=== PATIENT | male | born 1955 | race Two or more races ===

== ENCOUNTER 2023-03-13 15:48 | Inpatient (IN) | payer MEDICARE ==
[~2023-03-13] VITALS: Ht 170.2 cm; Wt 79.5 kg
[2023-03-13 17:12] LABS: Basophils # (auto) 0.1 10 ^3/uL (0-0.2); Hemoglobin 10.6 g/dL (13.5-17.5); Monocytes # (auto) 0.7 10 ^3/uL (0-1.3)
[2023-03-13 17:15] LABS: Basophils % (auto) 1.5 % (0.0-2.0); Eosinophils # (auto) 0.1 10 ^3/uL (0-0.8); Eosinophils % (auto) 1.7 % (0.0-7.0); Hematocrit 33.2 % (41.0-53.0); Lymphocytes # (auto) 0.8 10 ^3/uL (0.4-5.4); Lymphocytes % (auto) 11.2 % (10.0-50.0); Mean Corpuscular Hemoglobin 26.4 pg (28.0-32.0); Mean Corpuscular Hgb Conc. 31.9 g/dL (32.0-36.0); Mean Corpuscular Volume 82.9 fL (80.0-100.0); Monocytes % (auto) 9.5 % (0.0-12.0); Neutrophils # (auto) 5.7 10 ^3/uL (1.6-8.6); Neutrophils % (auto) 76.1 % (37.0-80.0); White Blood Cell 7.5 10^3/uL (4.4-10.8)
[2023-03-13 17:29] LABS: Alanine Aminotransferase 15 U/L (7-40); Albumin 4.5 g/dL (3.2-4.8); Alkaline Phosphatase 82 U/L (46-116); Anion Gap 10 (5-15); Aspartate Aminotransferase 14 U/L (13-40); BUN/Creatinine Ratio 27.2 (10.0-20.0); Blood Urea Nitrogen 22 mg/dL (9-23); Carbon Dioxide 21 mmol/L (20-30); Chloride 110 mmol/L (98-107); Glucose 122 mg/dL (74-106); Potassium 4.3 mmol/L (3.5-5.1); Sodium 141 mmol/L (136-145)
[2023-03-13 17:30] LABS: Bilirubin, Total 0.5 mg/dL (0.2-1.0); Total Protein 6.4 g/dL (5.7-8.2)
[2023-03-13 17:44] LABS: INR 1.3 (0.9-1.15); Partial Thromboplastin Time 30.4 SEC (24.5-34.5); Prothrombin Time 13.4 sec (9.3-11.8)
[2023-03-13 20:15] VITALS: PULSE 62; RESP 14; O2SAT 95
[2023-03-13] MEDS ORDERED: FUROSEMIDE 20 MG/2 ML VIAL IV ONE (20:30)
[2023-03-13] MEDS ORDERED: SPIRONOLACTONE 25 MG TAB PO ONE (20:30)
[2023-03-13] MEDS ORDERED: MORPHINE SULFATE INJ 2 MG/ml SYRG IV PRN (23:15)
[2023-03-14] VITALS (8 sets, daily range): BP systolic 150–162; BP diastolic 65–80; PULSE 54–62; RESP 16–19; TEMP 97.5–98.2; O2SAT 95–98
[2023-03-14 06:02] LABS: Basophils # (auto) 0.1 10 ^3/uL (0-0.2); Eosinophils # (auto) 0.2 10 ^3/uL (0-0.8); Hemoglobin 10.3 g/dL (13.5-17.5); Mean Corpuscular Hemoglobin 26.7 pg (28.0-32.0)
[2023-03-14 06:06] LABS: Basophils % (auto) 2.1 % (0.0-2.0); Eosinophils % (auto) 2.6 % (0.0-7.0); Hematocrit 32.3 % (41.0-53.0); Lymphocytes # (auto) 1.2 10 ^3/uL (0.4-5.4); Lymphocytes % (auto) 18.6 % (10.0-50.0); Mean Corpuscular Hgb Conc. 31.8 g/dL (32.0-36.0); Monocytes # (auto) 0.8 10 ^3/uL (0-1.3); Monocytes % (auto) 12.2 % (0.0-12.0); Neutrophils % (auto) 64.5 % (37.0-80.0); Nucleated Red Blood Cells % 0.2 %; Red Blood Cells 3.85 10^6/uL (4.5-5.90); Red Cell Distribution Width 19.3 % (11.8-14.3); White Blood Cell 6.2 10^3/uL (4.4-10.8)
[2023-03-14 06:25] LABS: Alkaline Phosphatase 76 U/L (46-116); Anion Gap 13 (5-15); Aspartate Aminotransferase 16 U/L (13-40); BUN/Creatinine Ratio 20.6 (10.0-20.0); Blood Urea Nitrogen 14 mg/dL (9-23); Calcium 9.1 mg/dL (8.7-10.4); Carbon Dioxide 21 mmol/L (20-30); Chloride 108 mmol/L (98-107); Glucose 118 mg/dL (74-106); Potassium 3.1 mmol/L (3.5-5.1); Sodium 142 mmol/L (136-145)
[2023-03-14 06:26] LABS: Albumin 4.6 g/dL (3.2-4.8); Bilirubin, Total 0.6 mg/dL (0.2-1.0); Total Protein 6.7 g/dL (5.7-8.2)
[2023-03-14 06:44] LABS: Alanine Aminotransferase 9 U/L (7-40)
[2023-03-14] MEDS ORDERED: POTASSIUM CHL 20 Meq TABLET PO ONE (08:45)
[2023-03-14] MEDS ORDERED: FUROSEMIDE 20 MG/2 ML VIAL IV ONE (08:45)
[2023-03-14] MEDS: ACETAMINOPHEN 325 MG TAB PO PRN (09:32)
[2023-03-14] MEDS ORDERED: LISI2.5T47 PO (10:20)
[2023-03-14] MEDS ORDERED: WARF-66 PO (10:20)
[2023-03-14] MEDS ORDERED: FLEC100T PO (10:20)
[2023-03-14] MEDS ORDERED: METF500S3 PO (10:20)
[2023-03-14] MEDS ORDERED: METO-6 PO (10:20)
[2023-03-14 16:20] LABS: INR 1.28 (0.9-1.15); Prothrombin Time 13.2 sec (9.3-11.8)
[2023-03-14 16:54] LABS: COVID19 ANTIGEN SOFIA FIA NEGATIVE (NEGATIVE)
[2023-03-14] MEDS ORDERED: WARFARIN SODIUM 2.5 MG TAB PO ONE (17:00)
[2023-03-14] MEDS: FLECAINIDE ACETATE 50 MG TAB PO SCH (21:31)
[2023-03-14] MEDS: ZOLPIDEM TARTRATE 5 MG TAB PO PRN (21:31)
[2023-03-15] MEDS ORDERED: guaiFENesin-DM 100/10mg/5ml SYR PO PRN (04:00)
[2023-03-15 05:00] VITALS: BP 154/73; PULSE 70; RESP 20; TEMP 97.5; O2SAT 95
[2023-03-15 07:09] LABS: INR 1.27 (0.9-1.15); Prothrombin Time 13.1 sec (9.3-11.8)
[2023-03-15 08:00] VITALS: PULSE 65; RESP 20
[2023-03-15] MEDS: HYDROcodone-ACET 5/325MG TAB PO PRN ×2 (08:34→12:40)
[2023-03-15] MEDS: FLECAINIDE ACETATE 50 MG TAB PO SCH ×2 (08:34→22:41)
[2023-03-15 09:45] VITALS: BP 164/78; PULSE 67; RESP 20; TEMP 97.5; O2SAT 93
[2023-03-15] MEDS ORDERED: LISINOPRIL 5 MG TAB PO SCH (10:00)
[2023-03-15 13:00] VITALS: BP 160/72; PULSE 68; RESP 19; TEMP 97.9; O2SAT 95
[2023-03-15 13:55] LABS: Rapid Influenza A Negative (Negative); Rapid Influenza B Negative (Negative)
[2023-03-15] MEDS ORDERED: WARFARIN SODIUM 2.5 MG TAB PO ONE (17:00)
[2023-03-15] MEDS ORDERED: hydrALAZINE HCL 20 MG/ML VL IV PRN (18:45)
[2023-03-15 20:00] VITALS: PULSE 86; RESP 16; O2SAT 94
[2023-03-15 22:00] VITALS: BP 135/84; PULSE 91; RESP 16; TEMP 98.8; O2SAT 93
[2023-03-15] MEDS: ZOLPIDEM TARTRATE 5 MG TAB PO PRN (22:41)
[2023-03-16] VITALS (22 sets, daily range): BP systolic 106–162; BP diastolic 46–83; PULSE 63–101; RESP 16–99; TEMP 98–100.1; O2SAT 94–99
[2023-03-16 07:46] LABS: INR 1.34 (0.9-1.15); Partial Thromboplastin Time 32.7 SEC (24.5-34.5); Prothrombin Time 13.8 sec (9.3-11.8)
[2023-03-16] MEDS ORDERED: LIDOCAINE VISCOUS 2% 15ML UD PO ONE (08:15)
[2023-03-16] MEDS ORDERED: MIDAZOLAM HCL 2MG/2ML 2ml VIAL (1mg/ml) IV ONE (08:15)
[2023-03-16] MEDS ORDERED: fentaNYL CITRATE 100 MCG/2 ML VL IV ONE (08:15)
[2023-03-16] MEDS ORDERED: ENOXAPARIN SOD 100 MG/1 ML SYRINGE SC ONE (08:44)
[2023-03-16] MEDS ORDERED: ENOXAPARIN SOD 80 MG/0.8ML SYRINGE SC ONE (08:45)
[2023-03-16] MEDS ORDERED: diphenhdrAMINE HCL 50 MG/1 ML VL ONE (08:52)
[2023-03-16] MEDS ORDERED: WARFARIN SODIUM 2.5 MG TAB PO ONE (09:00)
[2023-03-16] MEDS ORDERED: METOPROLOL TARTRATE 25 MG TAB PO ONE (09:00)
[2023-03-16] MEDS ORDERED: METOPROLOL TARTRATE 1MG/1ML-5ML VIAL IV ONE ×2 (09:00→09:02)
[2023-03-16] MEDS ORDERED: FLECAINIDE ACETATE 50 MG TAB PO ONE (09:00)
[2023-03-16] MEDS ORDERED: LISINOPRIL 5 MG TAB PO SCH (10:00)
[2023-03-16] MEDS: FLECAINIDE ACETATE 50 MG TAB PO SCH ×2 (10:10→22:06)
[2023-03-16] MEDS ORDERED: ISOSORBIDE MONONITRATE 20 MG TAB PO ONE (13:00)
[2023-03-16 13:39] LABS: Basophils # (auto) 0.1 10 ^3/uL (0-0.2); Eosinophils # (auto) 0 10 ^3/uL (0-0.8); Hemoglobin 10.9 g/dL (13.5-17.5); Lymphocytes # (auto) 0.5 10 ^3/uL (0.4-5.4)
[2023-03-16 13:42] LABS: Basophils % (auto) 0.5 % (0.0-2.0); Hematocrit 34.1 % (41.0-53.0); Lymphocytes % (auto) 3.9 % (10.0-50.0); Mean Corpuscular Hemoglobin 26.3 pg (28.0-32.0); Mean Corpuscular Hgb Conc. 31.9 g/dL (32.0-36.0); Mean Corpuscular Volume 82.4 fL (80.0-100.0); Monocytes % (auto) 7.9 % (0.0-12.0); Neutrophils # (auto) 10.8 10 ^3/uL (1.6-8.6); Neutrophils % (auto) 87.7 % (37.0-80.0); Red Blood Cells 4.14 10^6/uL (4.5-5.90); White Blood Cell 12.3 10^3/uL (4.4-10.8)
[2023-03-16 13:55] LABS: INR 1.67 (0.9-1.15); Partial Thromboplastin Time 32.6 SEC (24.5-34.5)
[2023-03-16 14:06] LABS: Alanine Aminotransferase 17 U/L (7-40); Albumin 4.8 g/dL (3.2-4.8); Alkaline Phosphatase 86 U/L (46-116); Anion Gap 13 (5-15); Aspartate Aminotransferase 27 U/L (13-40); BUN/Creatinine Ratio 19.4 (10.0-20.0); Blood Urea Nitrogen 18 mg/dL (9-23); Calcium 9.7 mg/dL (8.5-10.1); Carbon Dioxide 21 mmol/L (20-30); Chloride 103 mmol/L (98-107); Potassium 4.9 mmol/L (3.5-5.1); Sodium 137 mmol/L (136-145)
[2023-03-16 14:07] LABS: Bilirubin, Total 0.7 mg/dL (0.2-1.0); Total Protein 6.8 g/dL (5.7-8.2)
[2023-03-16 14:09] LABS: Glucose 252 mg/dL (74-106)
[2023-03-16] MEDS ORDERED: WARFARIN SODIUM 1 MG TAB PO ONE (17:00)
[2023-03-16] MEDS: HYDROcodone-ACET 5/325MG TAB PO PRN (20:05)
[2023-03-16] MEDS: ISOSORBIDE MONONITRATE 20 MG TAB PO SCH (22:00)
[2023-03-17] VITALS (7 sets, daily range): BP systolic 98–137; BP diastolic 52–65; PULSE 58–80; RESP 18–20; TEMP 98–98.6; O2SAT 93–97
[2023-03-17] MEDS: ACETAMINOPHEN 325 MG TAB PO PRN ×4 (01:46→21:37)
[2023-03-17] MEDS: HYDROcodone-ACET 5/325MG TAB PO PRN (05:02)
[2023-03-17 06:59] LABS: INR 1.52 (0.9-1.15); Prothrombin Time 15.5 sec (9.3-11.8)
[2023-03-17] MEDS: ENOXAPARIN SOD 80 MG/0.8ML SYRINGE SC SCH ×2 (09:58→21:21)
[2023-03-17] MEDS: ISOSORBIDE MONONITRATE 20 MG TAB PO SCH ×2 (09:59→21:22)
[2023-03-17] MEDS: FLECAINIDE ACETATE 50 MG TAB PO SCH ×2 (09:59→21:23)
[2023-03-17] MEDS: LISINOPRIL 20 MG TAB PO SCH (09:59)
[2023-03-17 10:48] LABS: Eosinophils # (auto) 0 10 ^3/uL (0-0.8); Lymphocytes # (auto) 0.5 10 ^3/uL (0.4-5.4); Monocytes # (auto) 0.9 10 ^3/uL (0-1.3); Nucleated Red Blood Cells % 0.1 %; Red Cell Distribution Width 19.1 % (11.8-14.3)
[2023-03-17 10:50] LABS: Basophils # (auto) 0 10 ^3/uL (0-0.2); Basophils % (auto) 0.5 % (0.0-2.0); Eosinophils % (auto) 0.3 % (0.0-7.0); Hematocrit 33.7 % (41.0-53.0); Hemoglobin 10.6 g/dL (13.5-17.5); Lymphocytes % (auto) 6.5 % (10.0-50.0); Mean Corpuscular Hemoglobin 26.1 pg (28.0-32.0); Mean Corpuscular Hgb Conc. 31.4 g/dL (32.0-36.0); Mean Corpuscular Volume 83.2 fL (80.0-100.0); Neutrophils # (auto) 6.3 10 ^3/uL (1.6-8.6); Neutrophils % (auto) 80.7 % (37.0-80.0); Red Blood Cells 4.05 10^6/uL (4.5-5.90); White Blood Cell 7.8 10^3/uL (4.4-10.8)
[2023-03-17 11:03] LABS: Alanine Aminotransferase 21 U/L (7-40); Albumin 4.3 g/dL (3.2-4.8); Alkaline Phosphatase 66 U/L (46-116); Anion Gap 12 (5-15); Aspartate Aminotransferase 32 U/L (13-40); BUN/Creatinine Ratio 26.5 (10.0-20.0); Blood Urea Nitrogen 18 mg/dL (9-23); Calcium 9.4 mg/dL (8.5-10.1); Carbon Dioxide 21 mmol/L (20-30); Chloride 106 mmol/L (98-107); Potassium 3.5 mmol/L (3.5-5.1); Sodium 139 mmol/L (136-145)
[2023-03-17 11:04] LABS: Bilirubin, Total 0.4 mg/dL (0.2-1.0); Total Protein 6.5 g/dL (5.7-8.2)
[2023-03-17 11:23] LABS: Glucose 112 mg/dL (74-106)
[2023-03-17] MEDS ORDERED: WARFARIN SODIUM 5 MG TAB PO ONE (17:00)
[2023-03-17] MEDS: ZOLPIDEM TARTRATE 5 MG TAB PO PRN (21:36)
[2023-03-18 05:00] VITALS: BP 138/88; PULSE 75; RESP 19; TEMP 98.1; O2SAT 96
[2023-03-18 06:47] LABS: Basophils # (auto) 0.1 10 ^3/uL (0-0.2); Basophils % (auto) 0.9 % (0.0-2.0); Eosinophils # (auto) 0.1 10 ^3/uL (0-0.8); Eosinophils % (auto) 1.2 % (0.0-7.0); Lymphocytes # (auto) 0.7 10 ^3/uL (0.4-5.4); Monocytes # (auto) 0.7 10 ^3/uL (0-1.3); Red Blood Cells 4.44 10^6/uL (4.5-5.90); White Blood Cell 5.9 10^3/uL (4.4-10.8)
[2023-03-18 06:49] LABS: INR 1.59 (0.9-1.15); Partial Thromboplastin Time 43.3 SEC (24.5-34.5); Prothrombin Time 16.2 sec (9.3-11.8)
[2023-03-18 06:50] LABS: Hematocrit 36.3 % (41.0-53.0); Hemoglobin 11.7 g/dL (13.5-17.5); Lymphocytes % (auto) 12.3 % (10.0-50.0); Mean Corpuscular Hemoglobin 26.3 pg (28.0-32.0); Mean Corpuscular Hgb Conc. 32.1 g/dL (32.0-36.0); Mean Corpuscular Volume 81.8 fL (80.0-100.0); Monocytes % (auto) 11.9 % (0.0-12.0); Neutrophils # (auto) 4.4 10 ^3/uL (1.6-8.6); Neutrophils % (auto) 73.7 % (37.0-80.0); Nucleated Red Blood Cells % 0.1 %; Red Cell Distribution Width 18.7 % (11.8-14.3)
[2023-03-18 08:00] VITALS: PULSE 77
[2023-03-18 09:00] VITALS: BP 135/61; PULSE 90; RESP 20; TEMP 98; O2SAT 95
[2023-03-18] MEDS: FLECAINIDE ACETATE 50 MG TAB PO SCH (09:50)
[2023-03-18] MEDS: LISINOPRIL 20 MG TAB PO SCH (09:51)
[2023-03-18] MEDS: ISOSORBIDE MONONITRATE 20 MG TAB PO SCH (09:51)
[2023-03-18] MEDS: ENOXAPARIN SOD 80 MG/0.8ML SYRINGE SC SCH (09:51)
[2023-03-18] MEDS ORDERED: WARFARIN SODIUM 2 MG TAB PO ONE (17:00)
== END 2023-03-18 10:30 | disposition left against medical advice (07) | DRG 291 ==
LOC: ER 15:48 → OVERFLOW 23:09 → CENTRAL 03-14 02:44 → TELE-CENTR 03-15 19:12
PROVIDERS: ADMIT Internal Medicine; ATTEND Family Medicine
PROC: 5A2204Z Restoration of Cardiac Rhythm, Single (ICD-10-PCS; principal; 2023-03-13)
PROC: B24BZZ4 Ultrasonography of Heart with Aorta, Transesophageal (ICD-10-PCS; 2023-03-13)
DX: I11.0 Hypertensive heart disease with heart failure (principal); I50.33 Acute on chronic diastolic (congestive) heart failure; J96.01 Acute respiratory failure with hypoxia; I48.92 Unspecified atrial flutter; D64.9 Anemia, unspecified; E87.6 Hypokalemia; G47.00 Insomnia, unspecified; Z53.21 Procedure and treatment not carried out due to patient leaving prior to being seen by health care provider; I48.91 Unspecified atrial fibrillation; Z20.822 Contact with and (suspected) exposure to COVID-19; R51.9 Headache, unspecified; R00.1 Bradycardia, unspecified; E11.9 Type 2 diabetes mellitus without complications; Z80.1 Family history of malignant neoplasm of trachea, bronchus and lung; Z82.5 Family history of asthma and other chronic lower respiratory diseases; Z86.73 Personal history of transient ischemic attack (TIA), and cerebral infarction without residual deficits; Z87.891 Personal history of nicotine dependence; Z98.84 Bariatric surgery status; Z79.01 Long term (current) use of anticoagulants
CPT/HCPCS: 36415; 70450; 71045; 71046; 80053; 83036; 83735; 83880; 84443; 84484; 85025; 85379; 85610; 85730; 87426; 87804; 93005; 93306; 93312; 99152; G0378; J2250